=== PATIENT | female | born 1960 | race Caucasian/White ===

== ENCOUNTER 2019-09-13 18:40 | Emergency (ER) | payer OTHER ==
[~2019-09-13] VITALS: Ht 154.9 cm; Wt 86.9 kg
[~2019-09-13 18:40] MED LIST: ALBU8.5H4 IH; ALPR-624 PO; CETI-1 PO; CHOL100010 PO; CLOT15CR74 TP; CYAN100061 IM; CYCL-1 PO; HYDR-4383 PO; LEVO75TA57 PO; NAS0.025NS NS; OMEP-84 PO; OXYC-658 PO; PROP40TA72 PO; TRAM50TA2 PO; TRAZ-91 PO; ZOC40T PO
[2019-09-13 18:42] VITALS: BP 149/102
[2019-09-13] MEDS ORDERED: bacitracin 15gm ointment TP ONE ×2 (19:10)
[2019-09-13] MEDS ORDERED: TETanus/Pertussis (Acell)/Diphther VAC/PF (Tdap-Adult) 0.5ml syringe IMVAC ONE (19:10)
== END 2019-09-13 19:33 | disposition home or self-care (01) ==
LOC: ER 18:40
DX: T21.21XA Burn of second degree of chest wall, initial encounter (principal); E78.00 Pure hypercholesterolemia, unspecified; K21.9 Gastro-esophageal reflux disease without esophagitis; M19.90 Unspecified osteoarthritis, unspecified site; G89.29 Other chronic pain; Z56.0 Unemployment, unspecified; Z98.890 Other specified postprocedural states; Z88.1 Allergy status to other antibiotic agents; Z88.0 Allergy status to penicillin; Z88.8 Allergy status to other drugs, medicaments and biological substances; Z79.899 Other long term (current) drug therapy; X16.XXXA Contact with hot heating appliances, radiators and pipes, initial encounter; Y93.89 Activity, other specified; Y92.090 Kitchen in other non-institutional residence as the place of occurrence of the external cause; Y99.9 Unspecified external cause status
CPT/HCPCS: 16020; 90471; 90715; 99283

== ENCOUNTER 2019-09-30 10:30 | Emergency (ER) | payer OTHER ==
[~2019-09-30] VITALS: Ht 154.9 cm; Wt 100.0 kg
[2019-09-30] MEDS ORDERED: ondansetron 4mg rapidly disintigrating tab PO ONE (10:55)
[2019-09-30] MEDS ORDERED: meclizine 12.5mg tablet PO ONE (10:55)
[2019-09-30] MEDS ORDERED: normal saline 1000ML IV soln IVB ONE (11:00)
[2019-09-30 11:09] LABS: BASOPHILS # (AUTO) 0.1 X10'3 (0-0.2); EOSINOPHILS # (AUTO) 0.2 X10'3 (0-0.9); EOSINOPHILS % (AUTO) 2.7 % (0-6); HEMATOCRIT 44.5 % (35.0-45.0); HEMOGLOBIN 14.8 g/dl (12.0-16.0); LYMPHOCYTES # (AUTO) 2.8 X10'3 (1.1-4.8); LYMPHOCYTES % (AUTO) 36.7 % (21-51); MEAN CORPUSCULAR HEMOGLOBIN 29.9 PG (27.0-31.0); MEAN CORPUSCULAR HGB CONC 33.3 g/dL (33.0-36.5); MEAN CORPUSCULAR VOLUME 89.7 FL (78-98); MEAN PLATELET VOLUME 9.5 FL (7.4-10.4); MONOCYTES # (AUTO) 0.5 X10'3 (0-0.9); MONOCYTES % (AUTO) 6.7 % (2-12); NEUTROPHILS % (AUTO) 52.9 % (42-75); PLATELET COUNT 249 X10'3 (140-440); RED BLOOD COUNT 4.96 X10'6 (4.20-5.60); RED CELL DISTRIBUTION WIDTH 13.8 % (11.5-14.5); WHITE BLOOD COUNT 7.5 X10'3 (4.5-11.0)
[2019-09-30 11:26] LABS: ALANINE AMINOTRANSFERASE 26 U/L (12-78); ALBUMIN 3.4 G/DL (3.4-5.0); ALBUMIN/GLOBULIN RATIO 0.8 (1.1-1.5); ALKALINE PHOSPHATASE 78 IU/L (46-116); ANION GAP 11 (8-16); ASPARTATE AMINO TRANSFERASE 19 U/L (10-37); BLOOD UREA NITROGEN 6 MG/DL (7-18); BUN/CREATININE RATIO 8.2 (6.6-38.0); CALCIUM 8.9 MG/DL (8.5-10.1); CHLORIDE 98 MMOL/L (99-107); CREATININE 0.73 MG/DL (0.40-0.90); GLUCOSE 325 MG/DL (70-104); POTASSIUM 4.1 MMOL/L (3.5-5.1); SODIUM 135 MMOL/L (135-145); TOTAL CARBON DIOXIDE 25.6 MMOL/L (24-32); TOTAL PROTEIN 7.8 G/DL (6.4-8.2); eGFR 81 ML/MIN
[2019-09-30 11:33] LABS: MAGNESIUM 1.7 MG/DL (1.5-2.4)
[2019-09-30] MEDS ORDERED: MECL-184 PO (11:40)
[2019-09-30 12:17] VITALS: BP 119/70
== END 2019-09-30 12:50 | disposition home or self-care (01) ==
LOC: ER 10:31
DX: H81.13 Benign paroxysmal vertigo, bilateral (principal); R06.02 Shortness of breath; E78.00 Pure hypercholesterolemia, unspecified; K21.9 Gastro-esophageal reflux disease without esophagitis; G89.29 Other chronic pain; F41.9 Anxiety disorder, unspecified; F32.9 Major depressive disorder, single episode, unspecified; M19.90 Unspecified osteoarthritis, unspecified site; Z98.890 Other specified postprocedural states; Z56.0 Unemployment, unspecified; Z88.0 Allergy status to penicillin; Z88.2 Allergy status to sulfonamides; Z88.8 Allergy status to other drugs, medicaments and biological substances; Z79.899 Other long term (current) drug therapy
CPT/HCPCS: 36415; 71045; 80053; 82948; 83735; 83880; 84484; 85025; 93005; 96360; 99285; J7030; J8597

== ENCOUNTER 2020-03-14 22:32 | Emergency (ER) | payer OTHER ==
[~2020-03-14] VITALS: Ht 154.9 cm; Wt 86.4 kg
[~2020-03-14 22:32] MED LIST changes: +MECL-184 PO
[2020-03-14 22:44] VITALS: BP 146/83
[2020-03-14] MEDS ORDERED: HYDROcodone/acetaminophen 10/325mg tab PO ONE (23:00)
[2020-03-15] MEDS ORDERED: HYDR-4353 PO (00:05)
== END 2020-03-15 00:22 | disposition home or self-care (01) ==
LOC: ER 22:33
DX: S60.031A Contusion of right middle finger without damage to nail, initial encounter (principal); T14.8XXA Other injury of unspecified body region, initial encounter; M79.644 Pain in right finger(s); E78.00 Pure hypercholesterolemia, unspecified; K21.9 Gastro-esophageal reflux disease without esophagitis; M19.90 Unspecified osteoarthritis, unspecified site; G89.29 Other chronic pain; F41.9 Anxiety disorder, unspecified; F32.9 Major depressive disorder, single episode, unspecified; Z98.890 Other specified postprocedural states; Z72.89 Other problems related to lifestyle; Z56.0 Unemployment, unspecified; Z88.0 Allergy status to penicillin; Z88.1 Allergy status to other antibiotic agents; Z79.2 Long term (current) use of antibiotics; Z79.899 Other long term (current) drug therapy; X58.XXXA Exposure to other specified factors, initial encounter; Y93.89 Activity, other specified; Y92.89 Other specified places as the place of occurrence of the external cause; Y99.8 Other external cause status
CPT/HCPCS: 73130; 99283

== ENCOUNTER 2020-07-28 17:48 | Emergency (ER) | payer OTHER ==
[~2020-07-28] VITALS: Ht 154.9 cm; Wt 95.0 kg
[~2020-07-28 17:48] MED LIST changes: -MECL-184 PO; +MECL-231 PO
[2020-07-28 17:53] VITALS: BP 139/84
[2020-07-28] MEDS ORDERED: AZIT250T83 PO (19:04)
== END 2020-07-28 19:14 | disposition home or self-care (01) ==
LOC: ER 17:50
DX: J06.9 Acute upper respiratory infection, unspecified (principal); J40 Bronchitis, not specified as acute or chronic; E78.00 Pure hypercholesterolemia, unspecified; K21.9 Gastro-esophageal reflux disease without esophagitis; G89.29 Other chronic pain; M19.90 Unspecified osteoarthritis, unspecified site; F41.9 Anxiety disorder, unspecified; F32.9 Major depressive disorder, single episode, unspecified; Z98.890 Other specified postprocedural states; Z72.89 Other problems related to lifestyle; Z56.0 Unemployment, unspecified; Z88.0 Allergy status to penicillin; Z88.2 Allergy status to sulfonamides; Z88.8 Allergy status to other drugs, medicaments and biological substances; Z79.899 Other long term (current) drug therapy
CPT/HCPCS: 87081; 87880; 99283

== ENCOUNTER 2021-02-06 20:24 | Emergency (ER) | payer OTHER ==
[~2021-02-06] VITALS: Ht 154.9 cm; Wt 86.3 kg
[2021-02-06 21:12] VITALS: BP 142/76
== END 2021-02-06 23:35 | disposition home or self-care (01) ==
LOC: ER 20:25
DX: H92.03 Otalgia, bilateral (principal); E78.00 Pure hypercholesterolemia, unspecified; K21.9 Gastro-esophageal reflux disease without esophagitis; M19.90 Unspecified osteoarthritis, unspecified site; G89.29 Other chronic pain; Z72.89 Other problems related to lifestyle; Z56.0 Unemployment, unspecified; Z79.899 Other long term (current) drug therapy; Z88.0 Allergy status to penicillin; Z88.2 Allergy status to sulfonamides; Z88.8 Allergy status to other drugs, medicaments and biological substances; Z98.890 Other specified postprocedural states
CPT/HCPCS: 99281

== ENCOUNTER 2021-09-22 15:07 | Emergency (ER) | payer OTHER | END 2021-09-22 17:32 | disposition left against medical advice (07) | LOC: ER 15:08 | DX: N28.9 Disorder of kidney and ureter, unspecified (principal); Z53.21 Procedure and treatment not carried out due to patient leaving prior to being seen by health care provider ==

== ENCOUNTER 2024-11-17 14:05 | Emergency (ER) | payer OTHER ==
[~2024-11-17] VITALS: Ht 152.4 cm; Wt 92.3 kg
[2024-11-17 14:40] LABS: MEAN PLATELET VOLUME 8.6 FL (7.4-10.4); RED CELL DISTRIBUTION WIDTH 13.1 % (11.5-14.5)
[2024-11-17 14:59] LABS: CREATININE 0.70 MG/DL (0.40-0.90); TOTAL CARBON DIOXIDE 27.0 MMOL/L (24-32); eCRCL 58 ML/MIN; eGFR 84 ML/MIN
[2024-11-17] MEDS ORDERED: iohexol 300mg/ml 100ml inj. ONE (16:22)
[2024-11-17 17:03] VITALS: BP 126/80; PULSE 75; RESP 18; TEMP 98.4; O2SAT 95
--- NOTE | 2024-11-17 17:10 | RADIOLOGY REPORT ---
Technique: Real-time ultrasound images through the pelvis using a transabdominal transducer. Patient declined endovaginal component of the examination. Indication: abdominal pain Comparison: None Findings: The uterus measures 8.5 cm. The endometrial stripe measures mm. There are no focal masses. There i s no abnormal flow in the endometrium. Right ovary measures 2 x 1.7 x 1.8 cm. Normal flow on color doppler images. No focal masses are ident ified. Left ovary measures 1.7 x 1.6 x 2.4 cm. Normal flow on color doppler images. No focal masses are mike ntified. There is no significant free fluid in the pelvis. Impression: No evidence for ovarian torsion.
--- NOTE | 2024-11-17 17:22 | RADIOLOGY REPORT ---
COMPUTERIZED TOMOGRAPHY ABDOMEN AND PELVIS WITHOUT CONTRAST REASON FOR EXAM: infraumbilical pain. History of hernia repair. COMPARISON: None TECHNIQUE: Spiral scans were acquired from the diaphragm to the symphysis pubis without intravenous c ontrast administration. 2-D coronal and sagittal reformatted images were provided. Radiation optimiza tion: All CT scans at this facility use at least one of these dose optimization techniques: Automated exposure control mA and/or kV adjustment per patient size (includes targeted exams where dose is mat ched to clinical indication) or iterative reconstruction. RADIATION DOSE: CTDI: 33 mGy DLP: 1657 mGy-cm FINDINGS: The visualized lung bases are grossly clear. There is no pleural effusion. There is no pericardial e ffusion. There is a small hiatal hernia. The spleen is not enlarged. The liver is normal in size and contour. There are numerous small calcified gallstones along the dependent gallbladder wall. There i s no pericholecystic edema. The pancreas is within normal limits. The adrenal glands are normal. The kidneys enhance symmetrically. No solid renal mass is identified. There is a simple 1.8 cm cyst at the inferior pole of the right kidney that requires no dedicated follow-up. There is no hydronephrosi s of either kidney. There is no abdominal aortic aneurysm. No pathologic lymphadenopathy is identifie d by size criteria. No free fluid is identified in the abdomen or pelvis. There is no pathologic di stention of the small bowel to suggest obstruction. The uterus and ovaries are within normal limits. There is no significant colonic stool burden. The appendix is surgically absent. There is hernia mesh repair material deep to the umbilicus. There is no evidence of herniating fat or viscera through or around the mesh. There is no fluid collection or phlegmon about the surgical site. There are degenera tive changes throughout the visualized spine. No acute osseous abnormality is identified. IMPRESSION: Evidence of umbilical hernia repair with mesh. No evidence of herniating fat or viscera through or ar ound the mesh. No abscess or phlegmon is identified. Numerous small calcified gallstones. No evidence of acute cholecystitis.
[2024-11-17 17:32] LABS: LEUKOCYTE ESTERASE ,URINE NEGATIVE (Neg); NITRITES, URINE NEGATIVE (Neg); OCCULT BLOOD,URINE NEGATIVE (Neg)
[2024-11-17 17:47] LABS: UA COLLECTION TYPE CLN CATCH MIDSTREAM
--- NOTE | 2024-11-17 18:01 | Physician Documentation ---
History of Present Illness Chief Complaint: Abdominal Pain Stated Complaint: SEE CHIEF COMPLAINT Time Seen by MD: 15:14 Primary Medical Doctor: RAE Mode of Arrival: POV HPI 63 year old female reports 2 months of midline suprapubic pain. She has a family history of uterine cancer and is afraid that this represents uterine cancer. She denies fevers, N/V/D, urinary symptoms. She denies constipation and any change of pain on eating. She is s/p appendectomy and retains her gallbladder but has a history of gallstones. She also has a history of diabetes. Medication Reconciliation Allergies: Coded Allergies: Cephalosporins (Verified Allergy, Severe, 09/30/19) Penicillins (Verified Adverse Reaction, Severe, 09/30/19) sulfamethoxazole (Verified Adverse Reaction, Intermediate, 09/30/19) trimethoprim (Verified Adverse Reaction, Intermediate, 09/30/19) Uncoded Allergies: TAPE (Allergy, Severe, SKIN BURN, 09/30/19) Scheduled Albuterol Inhaler* (Albuterol Inhaler*), 2 PUFFS IH Q6H, (Reported) Alprazolam* (Xanax*), 1 MG PO BID, (Reported) Cetirizine Hcl* (Zyrtec*), 10 MG PO HS, (Reported) Cholecalciferol* (Vitamin D*), 2,000 UNITS PO DAILY, (Reported) Clotrimazole (Lotrimin Cream), 1 APPLIC TP BID, (Reported) Cyanocobalamin Inj.* (Vitamin B12 Inj*), 1,000 MCG IM Q30D, (Reported) Flunisolide* (Nasarel*), 2 SPRAY NS BID, (Reported) Levothyroxine Sodium* (Levoxyl*), 75 MCG PO DAILY, (Reported) Meclizine Hcl (Meclizine Hcl), 1 TABLET PO TID Omeprazole* (Prilosec*), 20 MG PO BID, (Reported) Propranolol Hcl* (Inderal*), 20 MG PO TID, (Reported) Simvastatin* (Zocor*), 40 MG PO HS, (Reported) Tramadol HCl (Tramadol HCl), 50 MG PO TID, (Reported) Trazodone Hcl* (Trazodone Hcl*), 100 MG PO HS, (Reported) Scheduled PRN Cyclobenzaprine* (Cyclobenzaprine*), 1 TABLET PO Q8H PRN for muscle spasms Cyclobenzaprine* (Cyclobenzaprine*), 1 TABLET PO Q8H PRN for muscle spasms Hydrocodone/Acetaminophen ([place] 5-325 Tablet), 1 TABLET PO TID PRN for pain Oxycodone Hcl IR* (Oxycodone IR*), 1 TAB PO Q6H PRN for pain, (Reported) Past Medical History Past Medical History: Arrhythmia, High Cholesterol, GERD, Thyroid (unspecified), Arthritis, Chronic Back Pain, Anxiety, Depression Past Surgical History: orthopedic surgeries, other Smoking Status: Never smoker Alcohol Use: Heavy Drug Use: none Lives with: Family Lives In: Home Occupation: unemployed Review of Systems All Other Systems at this time: Reviewed and Negative Physical Exam Vital Signs: RN Vital Signs have been reviewed: Yes, Temperature: 98.4, Source: Temporal, Heart Rate: 75, Respiratory Rate: 18, BP: 126/80, Pulse Oximetry: 95, Weight: 92.270 Oxygen Flow Rate: 0 Physical Exam HEENT: PERRL, moist oral mucosa, EOMI Pulmonary: No respiratory distress Cardiac: RRR, no murmur, rub or gallop GI: nondistended, soft, exquisitely tender suprapubic abdomen, no guarding, no rebound MSK: no deformity Skin: w/d/i, no rash Neuro: alert, nonfocal Psych: normal affect Progress Results/Orders Results/Orders Orders - ALEA THAKKAR MD Us Pelvis/With Duplex (11/17/24 15:15) Ct Abdomen Pelvis (11/17/24 16:18) Page Hospitalist (11/17/24 17:46) Completed Orders - ALAE THAKKAR MD Urinalysis, Cult If Indicated (11/17/24 14:13) Cbc/Diff (11/17/24 14:13) Lipase (11/17/24 14:13) CMP (11/17/24 14:13) LA (11/17/24 15:15) Us Pelvis/With Duplex (11/17/24 15:15) Ct Abdomen Pelvis (11/17/24 16:18) Iohexol 300mg/Ml 100ml Inj. (Omnipaque-3 (11/17/24 16:22) Hydrocodone/Apap 5/325mg Tab ([place] 5/32 (11/17/24 17:50) Vital Signs 11/17/24 11/17/24 11/17/24 11/17/24 14:09 15:16 15:25 17:03 Temp 98.4 98.4 Pulse 79 79 75 Resp 16 16 16 18 B/P (MAP) 106/76 126/55 (78) 126/80 (95) Pulse Ox 94 95 95 O2 Flow Rate 0 0 0 Laboratory Tests Test 11/17/24 14:22 11/17/24 16:51 White Blood Count 8.9 Red Blood Count 5.32 Hemoglobin 15.6 Hematocrit 46.0 H Mean Corpuscular Volume 86.4 Mean Corpuscular Hemoglobin 29.4 Mean Corpuscular Hemoglobin Concent 34.0 Red Cell Distribution Width 13.1 Platelet Count 286 Mean Platelet Volume 8.6 Neutrophils (%) (Auto) 57.9 Lymphocytes (%) (Auto) 29.8 Monocytes (%) (Auto) 8.1 Eosinophils (%) (Auto) 3.5 Basophils (%) (Auto) 0.7 Neutrophils # (Auto) 5.1 Lymphocytes # (Auto) 2.6 Monocytes # (Auto) 0.7 Eosinophils # (Auto) 0.3 Basophils # (Auto) 0.1 CBC Comment Sodium Level 132 L Potassium Level 3.9 Chloride Level 97 L Carbon Dioxide Level 27.0 Anion Gap 8 Blood Urea Nitrogen 10 Creatinine 0.70 Estimated GFR/1.73 m2 84 BUN/Creatinine Ratio 14.3 Glucose Level 235 H Lactic Acid Level 1.3 Calcium Level 8.8 Total Bilirubin 1.6 H Aspartate Amino Transf (AST/SGOT) 23 Alanine Aminotransferase (ALT/SGPT) 31 Alkaline Phosphatase 77 Total Protein 8.4 H Albumin 3.7 Globulin 4.7 H Albumin/Globulin Ratio 0.8 L Lipase 39 Chemistry Comments Urine Specimen Description Cln catch midstream Urine Color Yellow Urine Clarity Clear Urine pH 5.5 Urine Specific [place] <=1.005 Urine Protein Negative Urine Glucose (UA) Negative Urine Ketones Negative Urine Occult Blood Negative Urine Nitrite Negative Urine Bilirubin Negative Urine Urobilinogen 0.2 Urine Leukocyte Esterase Negative Urine Culture Indicated Not ind Volume Urine Centrifuged 10 ml Urine Comment Medical Decision Making Findings 63 year old female with nonspecific suprapubic pain, benign exam, and unremarkable vitals. Workup was similarly benign including a normal CBC/CMP/lipase/UA and CT scan which did not demonstrate significant acute findings. Will provide pain medication, have patient follow up with her PCP and return precautions discussed. Differential Dx:Considerations: Include: Appendicitis, Bowel obstruction, Cholangitis, Cholelithasis, Constipation, Diverticular disease, Gastritis/PUD, Hernia, Ischemic bowel, Ovarian cyst/torsion, Pancreatitis, Urinary obstruction, Urinary tract infection, Urolithiasis Departure Disposition: HOME / SELF CARE / HOMELESS Impression: Primary Impression: Abdominal pain Condition: Stable Discharge Instructions: Abdominal Pain (Nonspecific) Referrals: NO PRIMARY CARE PROVIDER (PCP) Education Educated: Patient Educated regarding: diagnosis, treatment, prognosis, need for follow up Signature Scribe Signature: . Attestation: . ALEA THAKKAR MD Nov 17, 2024 18:01
[2024-11-17] MEDS: HYDROcodone/acetaminophen 5mg/325mg tablet PO ONE (18:19)
[2024-11-17] MEDS ORDERED: HYDR-3965 PO (18:27)
== END 2024-11-17 18:36 | disposition home or self-care (01) ==
LOC: ER 14:06
DX: R10.2 Pelvic and perineal pain (principal); M19.90 Unspecified osteoarthritis, unspecified site; E78.00 Pure hypercholesterolemia, unspecified; E11.9 Type 2 diabetes mellitus without complications; K21.9 Gastro-esophageal reflux disease without esophagitis; F41.9 Anxiety disorder, unspecified; F32.A Depression, unspecified; Z56.0 Unemployment, unspecified; Z88.0 Allergy status to penicillin; Z88.1 Allergy status to other antibiotic agents; Z88.2 Allergy status to sulfonamides; Z90.49 Acquired absence of other specified parts of digestive tract; Z79.899 Other long term (current) drug therapy
CPT/HCPCS: 36415; 74177; 76856; 80053; 81003; 83605; 83690; 85025; 93976; 99285; Q9967

== ENCOUNTER 2025-04-28 01:12 | Emergency (ER) | payer OTHER ==
[~2025-04-28] VITALS: Ht 152.4 cm; Wt 91.3 kg
[2025-04-28 01:34] VITALS: PULSE 87
[2025-04-28 05:56] VITALS: BP 115/76; RESP 18; TEMP 98.6; O2SAT 99
--- NOTE | 2025-04-28 06:17 | Physician Documentation ---
History of Present Illness ~ General Chief Complaint: Neck pain Stated Complaint: LUMP ON NECK Time Seen by MD: 06:14 Primary Medical Doctor: RAE Source: patient Mode of Arrival: POV History of Present Illness Initial Comments CC: Lump on left side of neck HPI: The patient is a 64-year-old female with a history of hypothyroidism presenting to the ED for evaluation of lump to the left side of her neck for the past six months. The patient states that she first noticed it six months ago but it was smaller. She describes it has a hard, non moving and growing lump. [facility] but they did not seem "too concerned." The patient states that the lump has grown twice in size and that she can see it in the mirror" but was not too concerned with it until her hair started falling out two months ago. The patient denies any labs or imaging today, and she states that she would rather just go to urgent care [facility] and get it checked out there so she can spend [place] today with the grandkids. She denies having any hot or cold flashes, fevers, chills, weight loss or weight gain. She is currently on Synthroid for her under active thyroid. ROS: Constitutional: Negative for fever and chills. HENT: Positive for lump on left side of the neck. Negative for sore throat and rhinorrhea. Eyes: Negative for pain and redness. Respiratory: Negative for cough and SOB. Cardiovascular: Negative for chest pain and palpitations. Gastrointestinal: Negative for nausea and vomiting. . Genitourinary: Negative for dysuria and hematuria. Musculoskeletal: Negative for acute back pain and acute neck pain. Skin: Negative for rash and pruritus. Neurological: Negative for acute numbness or weakness. PMH: Hypothyroidism, bipolar, anxiety Medication Reconciliation Allergies: Coded Allergies: Cephalosporins (Verified Allergy, Severe, 09/30/19) Penicillins (Verified Adverse Reaction, Severe, 09/30/19) sulfamethoxazole (Verified Adverse Reaction, Intermediate, 09/30/19) trimethoprim (Verified Adverse Reaction, Intermediate, 09/30/19) Uncoded Allergies: TAPE (Allergy, Severe, SKIN BURN, 09/30/19) Scheduled Albuterol Inhaler* (Albuterol Inhaler*), 2 PUFFS IH Q6H, (Reported) Alprazolam* (Xanax*), 1 MG PO BID, (Reported) Cetirizine Hcl* (Zyrtec*), 10 MG PO HS, (Reported) Cholecalciferol* (Vitamin D*), 2,000 UNITS PO DAILY, (Reported) Clotrimazole (Lotrimin Cream), 1 APPLIC TP BID, (Reported) Cyanocobalamin Inj.* (Vitamin B12 Inj*), 1,000 MCG IM Q30D, (Reported) Flunisolide* (Nasarel*), 2 SPRAY NS BID, (Reported) Levothyroxine Sodium* (Levoxyl*), 75 MCG PO DAILY, (Reported) Meclizine Hcl (Meclizine Hcl), 1 TABLET PO TID Omeprazole* (Prilosec*), 20 MG PO BID, (Reported) Propranolol Hcl* (Inderal*), 20 MG PO TID, (Reported) Simvastatin* (Zocor*), 40 MG PO HS, (Reported) Tramadol HCl (Tramadol HCl), 50 MG PO TID, (Reported) Trazodone Hcl* (Trazodone Hcl*), 100 MG PO HS, (Reported) Scheduled PRN Cyclobenzaprine* (Cyclobenzaprine*), 1 TABLET PO Q8H PRN for muscle spasms Cyclobenzaprine* (Cyclobenzaprine*), 1 TABLET PO Q8H PRN for muscle spasms Hydrocodone/Acetaminophen ([place] 5-325 Tablet), 1 TABLET PO TID PRN for pain Oxycodone Hcl IR* (Oxycodone IR*), 1 TAB PO Q6H PRN for pain, (Reported) Past Medical History Past Medical History: Arrhythmia, High Cholesterol, GERD, Thyroid (unspecified), Arthritis, Chronic Back Pain, Anxiety, Depression Past Surgical History: orthopedic surgeries, other Alcohol Use: Heavy Drug Use: none Lives with: Family Lives In: Home Occupation: unemployed Physical Exam Physical Exam Vital Signs: Temperature: 98.6, Source: Oral, Heart Rate: 87, Respiratory Rate: 18, BP: 115/76, Pulse Oximetry: 99, Weight: 91.300 Physical Exam General: Awake. No distress. Verbal Head: No trauma Eyes: Nl lids Nl conjunctiva. No eye discharge ENT: Mucous membranes Nl. Lips Nl. No lesions neck no mass noted no thyroid mass noted. No erythema warmth. Normal range of motion. Neck: Supple. No JVD. No visible mass Resp: Rate normal. No respiratory distress. No retractions. Normal air flow. No wheezes, rhonchi, or rales. Heart: Regular rhythm. No murmur. No rub Abdomen: Soft. Nontender. No guarding. No rebound Musc/skeletal: No calf or popliteal tenderness. No edema Skin: No rash. No petechiae. Not diaphoretic Neuro: Alert, oriented. Normal speech normal gross sensory and motor exam Progress Results/Orders Results/Orders Vital Signs 04/28/25 04/28/25 01:34 05:56 Temp 98.4 98.6 Pulse 87 Resp 16 18 B/P (MAP) 113/75 115/76 (89) Pulse Ox 92 99 Medical Decision Making Additional information obtaine: N/A Findings The patient is a 64-year-old female with a history of hypothyroidism presenting to the ED for evaluation of lump to the left side of her neck for the past six months. The patient states that she first noticed it six months ago but it was smaller. She describes it has a hard, non moving and growing lump. She [facility] but they did not seem "too concerned." The patient states that the lump has grown twice in size and that she can see it in the mirror" but was not too concerned with it until her hair started fal ling out two months ago. The patient denies any labs or imaging today, and she states that she would rather just go to urgent [facility] and get it checked out there so she can spend [place] today with the grandkids. She denies having any hot or cold flashes, fevers, chills, weight loss or weight gain. She is currently on Synthroid for her under active thyroid. The patient eloped shortly after being seen. MDM: Limited: (2 points from category 1 or one discussion with independent historian) . Moderate: one of the following (3 points from category 1, or independent interpretations of tests performed by another physician/QHP: (ct,ecg,rad cara,rhythm strip,or comparing xray to prior), or discussion of tests or management with other professionals (not including [facility] ER doc/PA or family members.) High: (2 of 3 from : category 1 (3 points), independent interpretation of tests performed by another physician/QHP, and discussion of tests or management). Prior ER notes reviewed: Category 1: Number of Tests ordered or reviewed: 0 Number of Independent Historians: 0 Non [facility] ER notes reviewed: 1. 2. 3. Category 2: I independently interpreted the: The patient denies any labs or imaging today. Category 3: Discussion with other professionals: SOCIAL DETERMINANTS OF HEALTH Problems related to: ( )Challenges with access to Primary Care or Outpatient Speciality Care ( )Psychosocial circumstances such as mental health issues ( )Social environment: such as violence or substance abuse ( )Housing and economic circumstances: such as homelessness ( )Employment and unemployment: such as recently loss of employment ( )Occupational exposures or injuries: ( )Accessing ED outside of normal PCP hours ( )Language barrier: ( )Primary support group, including family circumstances: Prescription Management: Rx strength meds given in ED: [] New Prescriptions: [] ( x)I have reviewed the patient's medications and I do not recommend any changes at this time. (Applies only if checked) Comorbid conditions include but are not limited to: Hypothyroidism Testing or interventions considered: The patient presented with chronic feeling of a lump in the region of her thyroid in chronic hair loss. I recommended thyroid testing in his thyroid ultrasound. The patient stated she did not want to wait for either those and when it to [facility] I spoke with the her for quite awhile. It appeared that she wanted me to tell her that she did not have cancer reassured her that she did not have cancer. I explained to her that I could do these tests but it is hard for me to reassure her that she does not have cancer without doing the test. We discussed the risks and benefits of doing them here versus an outpatient. The patient was offered the labs and ultrasound multiple times but declined a and did not not want to wait for paperwork and left after the initial evaluation. Differential includes but is not limited to: Alopecia areata L the patient due to hypothyroid, thyroid mass, other neck mass. No mass was appreciable on my exam. Differential Diagnosis See MDM Departure Time of Disposition: 06:35 Disposition: 07 LEFT AWOL/ELOPED Impression: Primary Impression: Lump on neck Additional Impression: Alopecia Condition: Fair Additional Instructions: The patient did not wish to wait for discharge papers and eloped after initial evaluation Referrals: NO PRIMARY CARE PROVIDER (PCP) Signature Scribe Signature: Scribed for Christofer Chang MD by Emily Deluna . 04/28/25 06:18 Attestation: Scribed for Christofer Chang MD by Christofer Chang . 04/28/25 07:30 CHRISTOFER CHANG MD Apr 28, 2025 06:17 EMILY TOPETE Apr 28, 2025 06:33
== END 2025-04-28 07:34 | disposition left against medical advice (07) ==
LOC: ER 01:12
DX: R22.1 Localized swelling, mass and lump, neck (principal); L65.9 Nonscarring hair loss, unspecified; E03.9 Hypothyroidism, unspecified; E78.00 Pure hypercholesterolemia, unspecified; K21.9 Gastro-esophageal reflux disease without esophagitis; F31.9 Bipolar disorder, unspecified; G89.29 Other chronic pain; M19.90 Unspecified osteoarthritis, unspecified site; Z88.1 Allergy status to other antibiotic agents; Z88.0 Allergy status to penicillin; Z88.2 Allergy status to sulfonamides; Z88.8 Allergy status to other drugs, medicaments and biological substances; Z79.899 Other long term (current) drug therapy; Z56.0 Unemployment, unspecified; Z98.890 Other specified postprocedural states
CPT/HCPCS: 99282